=== PATIENT | male | born 2000 | race Caucasian/White ===

== ENCOUNTER 2020-03-15 07:39 | Observation (INO) | payer SELFPAY ==
[2020-03-15] MEDS ORDERED: ONDANSETRON HCL INJ/PF 4 MG/2 ML SDV IV ONE (09:57)
[2020-03-15] MEDS ORDERED: NORMAL SALINE 1000 ML 1,000 ML IV ONE ×2 (09:57→10:54)
[2020-03-15] MEDS ORDERED: FENTANYL CITRATE INJ/PF 100 MCG/2 ML AMPUL IV ONE (09:57)
[2020-03-15 10:23] LABS: APPEARANCE,URINE CLEAR; BILIRUBIN,URINE NEGATIVE (NEGATIVE); COLOR,URINE YELLOW; GLUCOSE, URINE NEGATIVE (NEGATIVE); KETONES,URINE 20 mg/dL (NEGATIVE); LEUKOCYTE ESTERASE,URINE NEGATIVE (NEGATIVE); NITRITE,URINE NEGATIVE (NEGATIVE); PROTEIN,URINE 30 mg/dL (NEGATIVE); UROBILINOGEN,URINE NEGATIVE mg/dL (<2.0)
[2020-03-15 10:27] LABS: ABSOLUTE LYMPHOCYTES (AUTO) 1.1 10^3/uL (0.5-4.7); ABSOLUTE MONOCYTES (AUTO) 0.8 10^3/uL (0.1-1.4); ABSOLUTE NEUT (AUTO) 10.7 10^3/uL (1.7-8.2); BASOPHILS % (AUTO) 0.2 % (0-2); EOSINOPHILS % (AUTO) 0.3 % (0-6); HEMATOCRIT 45.7 % (37.9-51.0); HEMOGLOBIN 15.7 g/dL (13.5-17.0); LYMPHOCYTES % (AUTO) 8.7 % (13-45); MEAN CORPUSCULAR HEMOGLOBIN 28.9 pg (27.0-33.4); MEAN CORPUSCULAR HGB CONC 34.4 g/dL (32.0-36.0); MEAN CORPUSCULAR VOLUME 84 fl (80-97); MONOCYTES % (AUTO) 6.2 % (3-13); PLATELET COUNT 195 10^3/uL (150-450); RED BLOOD COUNT 5.44 10^6/uL (4.35-5.55); RED CELL DISTRIBUTION WIDTH 12.8 % (11.5-14.0); SEGMENTED NEUTROPHILS % (AUTO) 84.6 % (42-78); TOTAL CELLS COUNTED % (AUTO) 100 %; WHITE BLOOD COUNT 12.7 10^3/uL (4.0-10.5)
[2020-03-15 10:47] LABS: ALKALINE PHOSPHATASE 40 U/L (65-260); ANION GAP 9 (5-19); ASPARTATE AMINO TRANSFERASE 23 U/L (10-45); BILIRUBIN,TOTAL 1.1 mg/dL (0.2-1.3); BLOOD UREA NITROGEN 17 mg/dL (7-20); CALCIUM 9.6 mg/dL (8.4-10.2); CARBON DIOXIDE 26 mmol/L (22-30); CHLORIDE 103 mmol/L (98-107); GLUCOSE 95 mg/dL (75-110); POTASSIUM 4.6 mmol/L (3.6-5.0); TOTAL PROTEIN 7.8 g/dL (6.3-8.2)
--- NOTE | 2020-03-15 11:27 | RADIOLOGY REPORT (SQ) ---
EXAM DESCRIPTION: CT ABD/PELVIS WITH IV ONLY IMAGES COMPLETED DATE/TIME: 03/15/2020 11:09 am REASON FOR STUDY: RLQ, suprapubic pain COMPARISON: None. TECHNIQUE: CT scan of the abdomen and pelvis performed using helical scanning technique with dynamic intravenous contrast injection. No oral contrast. Images reviewed with lung, soft tissue, and bone windows. Reconstructed coronal and sagittal MPR images reviewed. Delayed images for evaluation of the urinary system also acquired. All images stored on PACS. All CT scanners at this facility use dose modulation, iterative reconstruction, and/or weight based d osing when appropriate to reduce radiation dose to as low as reasonably achievable (ALARA). [facility]: Dose Right [facility]: CareDose [facility]: Dose Right [facility]: Teradose 4D [facility]: Everlater CONTRAST TYPE AND DOSE: contrast/concentration: Isovue 350.00 mmol/ml; Total Contrast Delivered: 73. 0 ml; Total Saline Delivered: 67.0 ml RENAL FUNCTION: None required. The patient is less than 50 years old. RADIATION DOSE: CT Rad equipment meets quality standard of care and radiation dose reduction techniq ues were employed. CTDIvol: 4.8 - 5.3 mGy. DLP: 526 mGy-cm.. LIMITATIONS: None. FINDINGS: LOWER CHEST: No significant findings. No nodules or infiltrates. LIVER: Normal size. No masses. No dilated ducts. SPLEEN: Normal size. No focal lesions. PANCREAS: No masses. No significant calcifications. No adjacent inflammation or peripancreatic fluid collections. Pancreatic duct not dilated. GALLBLADDER: No identified stones by CT criteria. No inflammatory changes to suggest cholecystitis. ADRENAL GLANDS: No significant masses or asymmetry. RIGHT KIDNEY AND URETER: No solid masses. No significant calcifications. No hydronephrosis or hyd roureter. LEFT KIDNEY AND URETER: No solid masses. No significant calcifications. No hydronephrosis or hydr oureter. AORTA AND VESSELS: No aneurysm. No dissection. Renal arteries, SMA, celiac without stenosis. RETROPERITONEUM: No retroperitoneal adenopathy, hemorrhage or masses. BOWEL AND PERITONEAL CAVITY: No masses or inflammatory changes. No free fluid or peritoneal masses. APPENDIX: Subtle inflammation associated with dilated appendix 11 mm, images 60-66 of series 3, image s 30-34 of series 601. PELVIS: No mass. No free fluid. Normal bladder. ABDOMINAL WALL: No masses. No hernias. BONES: No significant or acute findings. OTHER: No other significant finding. IMPRESSION: Acute appendicitis. TECHNICAL DOCUMENTATION: JOB ID: [id number] Quality ID # [id number]: Final reports with documentation of one or more dose reduction techniques (e.g., Au tomated exposure control, adjustment of the mA and/or kV according to patient size, use of iterative reconstruction technique) 2010 [employer]- All Rights Reserved Reading location - IP/workstation name: [email or web address]
[2020-03-15] MEDS ORDERED: PIPERACILLIN/TAZOBACTAM 3.375 GM VIAL IV ONE (11:51)
--- NOTE | 2020-03-15 11:55 | ER Document Report ---
ED GI/ - General Chief Complaint: Abdominal Pain Stated Complaint: ABDOMINAL PAIN,NAUSEA Time Seen by Provider: 03/15/20 09:26 Mode of Arrival: Ambulatory Information source: Patient Notes: Patient presents complaint of abdominal pain that started yesterday around 3 PM. Patient reports nausea and decreased appetite. Patient denies any fever or urinary symptoms. - HPI Patient complains to provider of: Abdominal pain. No: Vomiting Onset: Yesterday Timing/Duration: Persistent Quality of pain: Achy, Pressure Pain Level: 3 Location: RLQ, Suprapubic Associated symptoms: Loss of appetite, Nausea. denies: Dysuria, Fever, Urinary hesitancy, Urinary frequency, Urinary retention, Urinary urgency, Vomiting Exacerbated by: Denies Relieved by: Denies Similar symptoms previously: No Recently seen / treated by doctor: No - Related Data Allergies/Adverse Reactions: No Known Allergies Allergy (Unverified 03/15/20 09:48) Past Medical History - General Information source: Patient - Social History Smoking Status: Never Smoker Chew tobacco use (# tins/day): No Frequency of alcohol use: None Drug Abuse: None Occupation: None Lives with: Family Family History: Reviewed & Not Pertinent - Medical History Medical History: Negative Surgical Hx: Negative Review of Systems - Review of Systems Constitutional: No symptoms reported. denies: Fever EENT: No symptoms reported Cardiovascular: No symptoms reported Respiratory: No symptoms reported. denies: Cough, Short of breath Gastrointestinal: Abdominal pain, Nausea, Poor appetite. denies: Diarrhea, Vomiting Genitourinary: No symptoms reported. denies: Dysuria, Flank pain Male Genitourinary: No symptoms reported Musculoskeletal: No symptoms reported. denies: Back pain Skin: No symptoms reported Hematologic/Lymphatic: No symptoms reported Neurological/Psychological: No symptoms reported Physical Exam - Vital signs Vitals: Temp Pulse Resp BP Pulse Ox 98.6 F 104 H 20 137/79 H 100 03/15/20 07:49 03/15/20 07:49 03/15/20 07:49 03/15/20 07:49 03/15/20 07:49 - General General appearance: Appears well, Alert In distress: None - HEENT Head: Normocephalic, Atraumatic Eyes: Normal Conjunctiva: Normal Nasal: Normal Mouth/Lips: Normal Mucous membranes: Normal Neck: Normal, Supple. No: Lymphadenopathy - Respiratory Respiratory status: No respiratory distress Chest status: Nontender Breath sounds: Normal. No: Rales, Rhonchi, Stridor, Wheezing Chest palpation: Normal - Cardiovascular Rhythm: Tachycardia Heart sounds: S1 appreciated, S2 appreciated - Abdominal Inspection: Normal Distension: No distension Bowel sounds: Normal Tenderness: Tender - Right lower quadrant, suprapubic tenderness Organomegaly: No organomegaly - Back Back: Normal, Nontender. No: CVA tenderness - Extremities General upper extremity: Normal inspection, Normal ROM General lower extremity: Normal inspection, Normal ROM - Neurological Neuro grossly intact: Yes Cognition: Normal Orientation: AAOx4 Chloe Coma Scale Eye Opening: Spontaneous [place] Coma Scale Verbal: Oriented [place] Coma Scale Motor: Obeys Commands Chloe Coma Scale Total: 15 - Psychological Associated symptoms: Normal affect, Normal mood - Skin Skin Temperature: Warm Skin Moisture: Dry Skin Color: Normal Course - Re-evaluation Re-evalutation: 03/15/20 11:54 Patient with acute appendicitis per CT results, consulted with surgeon Dr. De Jesus who agrees to evaluate patient. field marketing manager notified of need for rapid COVID testing at this time. - Vital Signs Vital signs: Temp Pulse Resp BP Pulse Ox 98.6 F 77 15 121/74 100 03/15/20 14:39 03/15/20 14:39 03/15/20 14:39 03/15/20 14:39 03/15/20 14:39 - Laboratory Result Diagrams: 03/15/20 10:04 03/15/20 10:04 Laboratory results interpreted by me: 03/15/20 03/15/20 03/15/20 09:50 10:04 10:04 WBC 12.7 H Lymph % (Auto) 8.7 L Absolute Neuts (auto) 10.7 H Seg Neutrophils % 84.6 H Alkaline Phosphatase 40 L Urine Protein 30 H Urine Ketones 20 H 03/15/20 11:55 Labs- All tests 24 hr 03/15/20 03/15/20 03/15/20 09:50 10:04 10:04 WBC 12.7 H RBC 5.44 Hgb 15.7 Hct 45.7 MCV 84 MCH 28.9 MCHC 34.4 RDW 12.8 Plt Count 195 Lymph % (Auto) 8.7 L [place] % (Auto) 6.2 Eos % (Auto) 0.3 Baso % (Auto) 0.2 Absolute Neuts (auto) 10.7 H Absolute Lymphs (auto) 1.1 Absolute Monos (auto) 0.8 Absolute Eos (auto) 0.0 Absolute Basos (auto) 0.0 Seg Neutrophils % 84.6 H Sodium 138.1 Potassium 4.6 Chloride 103 Carbon Dioxide 26 Anion Gap 9 BUN 17 Creatinine 0.93 Est GFR ( Amer) > 60 Est GFR (MDRD) Non-Af > 60 Glucose 95 Calcium 9.6 Total Bilirubin 1.1 Direct Bilirubin 0.0 Neonat Total Bilirubin Not Reportable Neonat Direct Bilirubin Not Reportable Neonat Indirect Bili Not Reportable AST 23 ALT 26 Alkaline Phosphatase 40 L Total Protein 7.8 Albumin 5.0 Lipase 30.7 Urine Color YELLOW Urine Appearance CLEAR Urine pH 5.0 Ur Specific [place] 1.030 Urine Protein 30 H Urine Glucose (UA) NEGATIVE Urine Ketones 20 H Urine Blood NEGATIVE Urine Nitrite NEGATIVE Urine Bilirubin NEGATIVE Urine Urobilinogen NEGATIVE Ur Leukocyte Esterase NEGATIVE Urine WBC (Auto) 1 Urine RBC (Auto) 0 Urine Mucus (Auto) RARE Urine Ascorbic Acid NEGATIVE - Diagnostic Test Radiology reviewed: Reports reviewed Discharge - Discharge Clinical Impression: Appendicitis Qualifiers: Appendicitis type: acute appendicitis Acute appendicitis type: unspecified acute appendicitis type Qualified Code(s): K35.80 - Unspecified acute appendicitis Condition: Stable Disposition: ADMITTED OBSERVATION Admitting Provider: Surgicalist Unit Admitted: Surgical Floor
[2020-03-15] MEDS ORDERED: NEOSTIGMINE METHYLSULFATE 10 MG/10 ML VIAL ONE (14:34)
[2020-03-15] MEDS ORDERED: LIDOCAINE 2% INJ-PF (20 MG/ML) 2 ML AMPUL ONE (14:34)
[2020-03-15] MEDS ORDERED: GLYCOPYRROLATE 1 MG/5 ML VIAL ONE (14:34)
[2020-03-15] MEDS ORDERED: KETOROLAC TROMETHAMINE 60 MG/2 ML SDV ONE (14:34)
[2020-03-15] MEDS ORDERED: ONDANSETRON HCL INJ/PF 4 MG/2 ML SDV ONE (14:34)
[2020-03-15] MEDS ORDERED: BUPIVACAINE HCL 0.25 % INJ/PF (2.5 MG/1 ML) 30 ML VIAL ONE (14:40)
[2020-03-15] MEDS ORDERED: MIDAZOLAM 2 MG/2 ML INJ ONE (15:52)
[2020-03-15] MEDS ORDERED: FENTANYL CITRATE INJ/PF 100 MCG/2 ML AMPUL ONE ×2 (15:52→17:40)
[2020-03-15] MEDS ORDERED: HYDROMORPHONE HCL INJ/PF 2 MG/ML AMPULE ONE (15:52)
[2020-03-15] MEDS ORDERED: PROPOFOL INJ 200 MG/20 ML VIAL IV ONE (15:52)
--- NOTE | 2020-03-15 16:08 | PDOC H&P ---
History of Present Illness Admission Date/PCP: 03/15/20 13:48 ABIEL ABRAHAM MD Patient complains of: Right lower quadrant and pelvic pain History of Present Illness: ABIODUN BARRAGAN is a 19 year old male with a 1 day history of pain that began in his right lower quadrant and radiates into his pelvis. He rates his pain as 5 out of 10. He denies any nausea or vomiting. He denies any change in his bowel habits. His pain began as a dull slow ache, and intensified significantly over night. After the patient continued to have abdominal pain after 12 to 16 hours, he presented to the emergency department for evaluation. In the ER he was found to have acute appendicitis via CT scan. Currently he denies chest pain, shortness of breath, headache, dizziness, orthostasis, malaise, fatigue, blurry vision. Past Medical History Medical History: None Past Surgical History Past Surgical History: Reports: None Social History Lives with: Family Smoking Status: Never Smoker Electronic Cigarette use?: No Frequency of Alcohol Use: None Hx Recreational Drug Use: No Hx Prescription Drug Abuse: No - Advance Directive Resuscitation Status: Full Code Family History Family History: Reviewed & Not Pertinent Parental Family History Reviewed: Yes Children Family History Reviewed: Yes Sibling(s) Family History Reviewed.: Yes Medication/Allergy Allergies/Adverse Reactions: No Known Allergies Allergy (Unverified 03/15/20 09:48) Review of Systems Constitutional: ABSENT: chills, fatigue Eyes: ABSENT: visual disturbances Ears: ABSENT: hearing changes Nose, Mouth, and Throat: ABSENT: sore throat Cardiovascular: ABSENT: chest pain Respiratory: ABSENT: cough Gastrointestinal: PRESENT: abdominal pain. ABSENT: hematemesis, hematochezia, melena, nausea, vomiting Genitourinary: ABSENT: dysuria Musculoskeletal: ABSENT: back pain Integumentary: ABSENT: pruritus, rash Neurological: ABSENT: confusion, convulsions, dizziness Psychiatric: ABSENT: anxiety, depression Endocrine: ABSENT: cold intolerance, heat intolerance Physical Exam Vital Signs: Temp Pulse Resp BP Pulse Ox 98.6 F 77 15 121/74 100 03/15/20 14:39 03/15/20 14:39 03/15/20 14:39 03/15/20 14:39 03/15/20 14:39 Intake & Output 03/14/20 03/15/20 03/16/20 06:59 06:59 06:59 Intake Total 2000 Balance 2000 Weight 65.7 kg General appearance: PRESENT: no acute distress, cooperative Head exam: PRESENT: atraumatic, normocephalic Eye exam: PRESENT: EOMI, PERRLA. ABSENT: scleral icterus Mouth exam: PRESENT: neck supple Neck exam: ABSENT: meningismus, tenderness, thyromegaly, tracheal deviation Respiratory exam: PRESENT: unlabored. ABSENT: tachypnea, wheezes Cardiovascular exam: ABSENT: tachycardia Vascular exam: PRESENT: normal capillary refill. ABSENT: pallor GI/Abdominal exam: PRESENT: soft, tenderness - Right lower quadrant and suprapubic area. ABSENT: distended, rigid Rectal exam: PRESENT: deferred Extremities exam: ABSENT: clubbing Musculoskeletal exam: ABSENT: deformity Neurological exam: PRESENT: alert, awake, oriented to person, oriented to place, oriented to time, oriented to situation, CN II-XII grossly intact. ABSENT: motor sensory deficit Psychiatric exam: ABSENT: agitated, anxious, depressed Focused psych exam: ABSENT: delusional Skin exam: ABSENT: cyanosis, erythema, jaundice Results Laboratory Results: 03/15/20 10:04 03/15/20 10:04 03/15/20 03/15/20 03/15/20 09:50 10:04 10:04 WBC 12.7 H RBC 5.44 Hgb 15.7 Hct 45.7 MCV 84 MCH 28.9 MCHC 34.4 RDW 12.8 Plt Count 195 Seg Neutrophils % 84.6 H Sodium 138.1 Potassium 4.6 Chloride 103 Carbon Dioxide 26 Anion Gap 9 BUN 17 Creatinine 0.93 Est GFR ( Amer) > 60 Glucose 95 Calcium 9.6 Total Bilirubin 1.1 AST 23 Alkaline Phosphatase 40 L Total Protein 7.8 Albumin 5.0 Lipase 30.7 Urine Color YELLOW Urine Appearance CLEAR Urine pH 5.0 Ur Specific [place] 1.030 Urine Protein 30 H Urine Glucose (UA) NEGATIVE Urine Ketones 20 H Urine Blood NEGATIVE Urine Nitrite NEGATIVE Ur Leukocyte Esterase NEGATIVE Urine WBC (Auto) 1 Urine RBC (Auto) 0 Impressions: Abdomen/Pelvis CT 03/15/20 09:57 IMPRESSION: Acute appendicitis. Assessment & Plan - Diagnosis (1) Appendicitis Qualifiers: Appendicitis type: acute appendicitis Acute appendicitis type: unspecified acute appendicitis type Qualified Code(s): K35.80 - Unspecified acute appendicitis Is this a current diagnosis for this admission?: Yes - Time Anticipated Discharge Disposition: Home, Self Care Anticipated Discharge Timeframe: within 48 hours - Plan Summary Plan Summary: This is a 19-year-old male with a history, physical exam, and imaging consistent with acute appendicitis. I have discussed surgical versus nonsurgical options with the patient. The patient has chosen appendectomy as definitive surgical treatment. Risks/benefits discussed, informed consent testing was answered.
[2020-03-15] MEDS ORDERED: PROMETHAZINE HCL INJ 25 MG/1 ML VIAL IV PRN ×2 (16:27)
[2020-03-15] MEDS ORDERED: HYDROMORPHONE HCL INJ/PF 2 MG/ML AMPULE IV PRN (16:27)
[2020-03-15] MEDS ORDERED: MEPERIDINE HCL/PF INJ 25 MG/1 ML DISP.SYRIN IV PRN (16:27)
[2020-03-15] MEDS ORDERED: FENTANYL CITRATE INJ/PF 100 MCG/2 ML AMPUL IV PRN ×2 (16:27)
[2020-03-15] MEDS ORDERED: DIPHENHYDRAMINE HCL 50 MG/ML VIAL IV PRN (16:27)
[2020-03-15] MEDS ORDERED: PIPERACILLIN SODIUM/TAZOBACTAM 3.375 GM in NORMAL SALINE 100 ML IV ONE (16:45)
[2020-03-15] MEDS: FENTANYL CITRATE INJ/PF 100 MCG/2 ML AMPUL IV PRN ×2 (17:40→17:55)
[2020-03-15] MEDS ORDERED: ONDANSETRON HCL INJ/PF 4 MG/2 ML SDV IV PRN (18:09)
[2020-03-15] MEDS ORDERED: HYDROCODONE/ACETAMINOPHEN 10-325 MG TABLET PO PRN (18:11)
--- NOTE | 2020-03-15 18:18 | Operative Report ---
Nonrecallable Operative Report DATE OF SURGERY: 03/15/20 PREOPERATIVE DIAGNOSIS: Acute appendicitis POSTOPERATIVE DIAGNOSIS: Acute nonperforated appendicitis OPERATION: Laparoscopic appendectomy SURGEON: MILAGROS HERRERA ANESTHESIA: GA TISSUE REMOVED OR ALTERED: Appendix COMPLICATIONS: None apparent ESTIMATED BLOOD LOSS: Minimal PROCEDURE: Drains/implants: None. Procedure in detail: After informed consent was obtained, the patient was brought to the operating room and placed in the supine position. The area of t he abdomen was prepped and draped in a normal sterile fashion. A supraumbilical incision was created with a 15 blade scalpel. Dissection was carried through the subcutaneous tissues using sharp and blunt dissection. The cicatrix was identified, grasped with a Pretty clamp, and retracted upwards. The linea alba fascia was incised sharply, the abdomen was entered sharply. The balloon trocar was inserted, and pneumoperitoneum was achieved. A suprapubic 5 mm port was placed under direct laparoscopic visualization. Another left lower quadrant 5 mm port was placed in similar fashion. Atraumatic graspers were placed through the 5 mm ports. The appendix was easily identified. It was injected and inflamed. The mesoappendix was taken down using the harmonic scalpel. PDS Endoloops were secured around the base of the appendix x2. The appendix was then amputated using the harmonic scalpel. The appendix was placed into an Endo Catch bag, and pulled out through the umbilicus. The camera was reinserted. The right lower quadrant was inspected. It was found to be hemostatic. There is a small amount of seropurulent fluid in the pelvis. This was suctioned. No irrigation was used. The 5 mm trochars were then removed under direct laparoscopic visualization. The supraumbilical trocar was removed, and pneumoperitoneum was relieved. The supraumbilical fascia was closed using 0 Vicryl suture in [id number] fashion. The overlying skin was closed using 4-0 Vicryl Rapide suture in subcuticular fashion. All sponge, instrument, and needle counts were correct x2. Condition: Stable.
[2020-03-15] MEDS: IBUPROFEN 800 MG TABLET PO SCH (19:31)
--- NOTE | 2020-03-16 07:07 | PDOC DISCHARGE SUMMARY ---
General - Admit/Disc Date/PCP Admission Date/Primary Care Provider: 03/15/20 13:48 ABIEL ABRAHAM MD Discharge Date: 03/16/20 - Discharge Diagnosis Final Diagnosis: Acute nonperforated appendicitis - Assessment Summary: 19-year-old male into the hospital with right lower quadrant and suprapubic pain. He was found to have acute appendicitis on CT scan. The patient was taken to the operating room, where laparoscopic appendectomy was successfully performed. The patient was taken to the floor in stable condition. He began tolerating a diet, ambulating, and his pain was controlled with oral pain medications. At this point it is felt that he is reached maximal hospital benefit, and is fit for discharge. - Additional Information Resuscitation Status: Full Code Discharge Diet: As Tolerated Discharge Activity: Balance Activity w/Rest, No Lifting Over 10 Pounds, No Lifting/Push/Pulling Referrals: ABIEL ABRAHAM MD [Primary Care Provider] - Follow up as needed Prescriptions: Hydrocodone/Acetaminophen [[place] 5-325 mg Tablet] 1 tab PO Q6HP PRN #14 tablet PRN Reason: For Pain Home Medications: Hydrocodone/Acetaminophen [[place] 5-325 mg Tablet] 1 tab PO Q6HP PRN #14 tablet 03/16/20 History of Present Illiness History of Present Illness: ABIODUN BARRAGAN is a 19 year old male with a 1 day history of pain that began in his right lower quadrant and radiates into his pelvis. He rates his pain as 5 out of 10. He denies any nausea or vomiting. He denies any change in his bowel habits. His pain began as a dull slow ache, and intensified significantly over night. After the patient continued to have abdominal pain after 12 to 16 hours, he presented to the emergency department for evaluation. In the ER he was found to have acute appendicitis via CT scan. Currently he denies chest pain, shortness of breath, headache, dizziness, orthostasis, malaise, fatigue, blurry vision. Physical Exam Vital Signs: Temp Pulse Resp BP Pulse Ox 98.0 F 109 H 16 104/49 L 98 03/16/20 00:00 03/16/20 00:00 03/16/20 00:00 03/16/20 00:00 03/16/20 00:00 Intake & Output 03/15/20 03/16/20 03/17/20 06:59 06:59 06:59 Intake Total 3285 Output Total 5 Balance 3280 Weight 65.7 kg Results Laboratory Results: WBC 12.7 10^3/uL (4.0-10.5) H 03/15/20 10:04 RBC 5.44 10^6/uL (4.35-5.55) 03/15/20 10:04 Hgb 15.7 g/dL (13.5-17.0) 03/15/20 10:04 Hct 45.7 % (37.9-51.0) 03/15/20 10:04 MCV 84 fl (80-97) 03/15/20 10:04 MCH 28.9 pg (27.0-33.4) 03/15/20 10:04 MCHC 34.4 g/dL (32.0-36.0) 03/15/20 10:04 RDW 12.8 % (11.5-14.0) 03/15/20 10:04 Plt Count 195 10^3/uL (150-450) 03/15/20 10:04 Lymph % (Auto) 8.7 % (13-45) L 03/15/20 10:04 [place] % (Auto) 6.2 % (3-13) 03/15/20 10:04 Eos % (Auto) 0.3 % (0-6) 03/15/20 10:04 Baso % (Auto) 0.2 % (0-2) 03/15/20 10:04 Absolute Neuts (auto) 10.7 10^3/uL (1.7-8.2) H 03/15/20 10:04 Absolute Lymphs (auto) 1.1 10^3/uL (0.5-4.7) 03/15/20 10:04 Absolute Monos (auto) 0.8 10^3/uL (0.1-1.4) 03/15/20 10:04 Absolute Eos (auto) 0.0 10^3/uL (0.0-0.6) 03/15/20 10:04 Absolute Basos (auto) 0.0 10^3/uL (0.0-0.2) 03/15/20 10:04 Seg Neutrophils % 84.6 % (42-78) H 03/15/20 10:04 Sodium 138.1 mmol/L (137-145) 03/15/20 10:04 Potassium 4.6 mmol/L (3.6-5.0) 03/15/20 10:04 Chloride 103 mmol/L (98-107) 03/15/20 10:04 Carbon Dioxide 26 mmol/L (22-30) 03/15/20 10:04 Anion Gap 9 (5-19) 03/15/20 10:04 BUN 17 mg/dL (7-20) 03/15/20 10:04 Creatinine 0.93 mg/dL (0.52-1.25) 03/15/20 10:04 Est GFR ( Amer) > 60 (>60) 03/15/20 10:04 Est GFR (MDRD) Non-Af > 60 (>60) 03/15/20 10:04 Glucose 95 mg/dL (75-110) 03/15/20 10:04 Calcium 9.6 mg/dL (8.4-10.2) 03/15/20 10:04 Total Bilirubin 1.1 mg/dL (0.2-1.3) 03/15/20 10:04 Direct Bilirubin 0.0 mg/dL (0.0-0.4) 03/15/20 10:04 Neonat Total Bilirubin Not Reportable 03/15/20 10:04 Neonat Direct Bilirubin Not Reportable 03/15/20 10:04 Neonat Indirect Bili Not Reportable 03/15/20 10:04 AST 23 U/L (10-45) 03/15/20 10:04 ALT 26 U/L (<50) 03/15/20 10:04 Alkaline Phosphatase 40 U/L (65-260) L 03/15/20 10:04 Total Protein 7.8 g/dL (6.3-8.2) 03/15/20 10:04 Albumin 5.0 g/dL (3.7-5.6) 03/15/20 10:04 Lipase 30.7 U/L (23-300) 03/15/20 10:04 Urine Color YELLOW 03/15/20 09:50 Urine Appearance CLEAR 03/15/20 09:50 Urine pH 5.0 (5.0-9.0) 03/15/20 09:50 Ur Specific [place] 1.030 03/15/20 09:50 Urine Protein 30 mg/dL (NEGATIVE) H 03/15/20 09:50 Urine Glucose (UA) NEGATIVE mg/dL (NEGATIVE) 03/15/20 09:50 Urine Ketones 20 mg/dL (NEGATIVE) H 03/15/20 09:50 Urine Blood NEGATIVE (NEGATIVE) 03/15/20 09:50 Urine Nitrite NEGATIVE (NEGATIVE) 03/15/20 09:50 Urine Bilirubin NEGATIVE (NEGATIVE) 03/15/20 09:50 Urine Urobilinogen NEGATIVE mg/dL (<2.0) 03/15/20 09:50 Ur Leukocyte Esterase NEGATIVE (NEGATIVE) 03/15/20 09:50 Urine WBC (Auto) 1 /HPF 03/15/20 09:50 Urine RBC (Auto) 0 /HPF 03/15/20 09:50 Urine Mucus (Auto) RARE /LPF 03/15/20 09:50 Urine Ascorbic Acid NEGATIVE (NEGATIVE) 03/15/20 09:50 SARS-CoV-2 (PCR) NEGATIVE (NEGATIVE) 03/15/20 12:15 Impressions: Abdomen/Pelvis CT 03/15/20 09:57 IMPRESSION: Acute appendicitis.
[2020-03-16] MEDS: IBUPROFEN 800 MG TABLET PO SCH (07:29)
[2020-03-16 07:50] VITALS: BP 115/75
[2020-03-16] MEDS ORDERED: DOCUSATE SODIUM 100 MG/10 ML UDC PO SCH (10:00)
== END 2020-03-16 09:20 | disposition home or self-care (01) ==
LOC: ER 07:39 → EH 13:48 → INTOOBSV 13:48 → 4S 18:50
PROVIDERS: ATTEND Surgery
DX: K35.80 Unspecified acute appendicitis (principal); K38.8 Other specified diseases of appendix; Z03.818 Encounter for observation for suspected exposure to other biological agents ruled out; R00.0 Tachycardia, unspecified
CPT/HCPCS: 44970; 96376; 99285; 96374; 96375; 36415; 83690; 85025; 87635; 80053; 81001; 88304 ×2; 74177; 94799; 99140; 00840; G0378 ×2; J2250; J1885; J3010; J2710; J1170; J2405; J7030; J2704; J2543; J3490 ×2; C9803; 840